=== PATIENT | male | born 1995 | race African-American/Black ===

== ENCOUNTER 2021-06-26 19:51 | Emergency (ER) | payer OTHER ==
[~2021-06-26] VITALS: Ht 190.5 cm; Wt 77.1 kg
--- NOTE | 2021-06-26 20:29 | NUR ---
NIL X 1
[2021-06-26] MEDS ORDERED: ACETAMINOPHEN 500 MG TABLET ONE (20:57)
[2021-06-26] MEDS ORDERED: ACETAMINOPHEN 500 MG TABLET PO ONE (21:00)
[2021-06-26] MEDS ORDERED: DEXAMETHASONE 4 MG TABLET PO ONE (21:00)
[2021-06-26 23:27] VITALS: BP 114/75
--- NOTE | 2021-06-26 23:28 | NUR ---
pt ambulated with pulse ox. pt staying 93 percent, pt denies any respiratory distress, resp even and unlabored. erp aware
== END 2021-06-26 23:34 | disposition home or self-care (01) ==
LOC: ED 23:30
DX: U07.1 COVID-19 (principal); R05 Cough; R50.9 Fever, unspecified; R00.0 Tachycardia, unspecified
CPT/HCPCS: 71046; 99284; U0003; U0005